=== PATIENT | female | born 1960 | race Caucasian/White ===

== ENCOUNTER 2024-02-28 | Emergency (ER) | payer BC ==
[2024-02-28] MEDS: hydrOXYzine HCl 25 MG Tab PO ONE (01:26)
== END 2024-02-28 01:58 | disposition home or self-care (01) ==
LOC: JP.ED
DX: L29.9 Pruritus, unspecified (principal); I10 Essential (primary) hypertension; Z90.49 Acquired absence of other specified parts of digestive tract; Z79.899 Other long term (current) drug therapy; Z91.013 Allergy to seafood; Z88.0 Allergy status to penicillin; Z91.048 Other nonmedicinal substance allergy status
CPT/HCPCS: 99282; A9270; 99283